=== PATIENT | male | born 1975 | race American Indian/Alaskan Native ===

== ENCOUNTER 2017-11-19 02:00 | Emergency (ER) | payer MEDICAID ==
[2017-11-19 02:38] VITALS: BMI 27.9
--- NOTE | 2017-11-19 02:49 | ED PDOC ---
Arrival/HPI - General Time Seen by Provider: 11/19/17 02:04 Historian: Patient - History of Present Illness Narrative History of Present Illness (Text): 11/19/17 02:47 41 year old male, whose past medical history includes degenerative muscle disease, HIV, Depression, and rhabdomyolysis, presents to the emergency department complaining of worsening neck, right arm, and lower back spasms. Patient reports use of recreational drugs for pain relief. Patient denies any fever, chills, chest pain, shortness of breath, abdominal pain, nausea, vomiting , diarrhea, urinary symptoms, headache, dizziness, or any other complaints. PMD: Dr. Gómez Teague Symptom Onset: Gradual Symptom Course: Worsening Activities at Onset: Light Context: Home Past Medical History - Provider Review Nursing Documentation Reviewed: Yes Family/Social History - Physician Review Nursing Documentation Reviewed: Yes Family/Social History: No Known Family HX Allergies/Home Meds Allergies/Adverse Reactions: Allergies amoxicillin Allergy (Verified 06/26/17 20:28) Home Medications: Home Meds Medication Instructions Recorded Confirmed DiphenhydrAMINE [Benadryl] 25 mg PO Q4H 12/16/14 12/16/14 Quetiapine Fumarate [Seroquel] 200 mg PO DAILY 12/16/14 12/16/14 Review of Systems - Physician Review All systems were reviewed & negative as marked: Yes - Review of Systems Constitutional: absent: Fevers, Other (Chills) Respiratory: absent: SOB Cardiovascular: absent: Chest Pain Gastrointestinal: absent: Abdominal Pain, Diarrhea, Nausea Genitourinary Male: absent: Dysuria, Frequency, Hematuria Musculoskeletal: Back Pain (Spasm), Neck Pain (and right arm spasm) Neurological: absent: Headache, Dizziness Physical Exam Vital Signs Reviewed: Yes Vital Signs Temp Pulse Resp BP Pulse Ox 11/19/17 05:06 97.9 F 66 18 131/97 H 100 Temperature: Afebrile Blood Pressure: Hypertensive Pulse: Regular Respiratory Rate: Normal Appearance: Positive for: Well-Appearing, Non-Toxic, Comfortable Pain Distress: None Mental Status: Positive for: Alert and Oriented X 3 - Systems Exam Head: Present: Atraumatic, Normocephalic Pupils: Present: PERRL Extroacular Muscles: Present: EOMI Conjunctiva: Present: Normal Mouth: Present: Moist Mucous Membranes Neck: Present: Normal Range of Motion Respiratory/Chest: Present: Clear to Auscultation, Good Air Exchange. No: Respiratory Distress, Accessory Muscle Use Cardiovascular: Present: Regular Rate and Rhythm, Normal S1, S2. No: Murmurs Abdomen: No: Tenderness, Distention, Peritoneal Signs Back: Present: Normal Inspection Upper Extremity: Present: Normal Inspection. No: Cyanosis, Edema Lower Extremity: Present: Normal Inspection. No: Edema Neurological: Present: GCS=15, CN II-XII Intact, Speech Normal Skin: Present: Warm, Dry, Normal Color. No: Rashes Psychiatric: Present: Alert, Oriented x 3, Normal Insight, Normal Concentration Medical Decision Making ED Course and Treatment: 11/19/17 02:48 Impression 41 year old male presents complaining of worsening neck, right arm. and lower back spasms. Plan: -- CT Cervical spine w/o Contrast -- Head CT w/o Contrast -- Labs -- Chest X-Ray -- IV Fluids -- UA -- reassess and disposition Progress Notes: EXAM: CT Head Without Intravenous Contrast Dictated and Authenticated by: Damion Blair MD 11/19/2017 4:01 AM IMPRESSION: 1. Dural parafalcine calcifications which could represent calcified meningiomas. 2. No acute CT intracranial abnormalities. EXAM: CT Cervical Spine Without Intravenous Contrast Dictated and Authenticated by: Damion Blair MD 11/19/2017 4:17 AM IMPRESSION: 1. Significant bilateral bony neuroforaminal stenosis at C6-C7 from large uncovertebral joints hypertrophic spurring. 2. No compression deformities of the vertebral bodies. 11/19/17 05:05 Chest X-Ray Impression: As read by NAD. rizwan 11/19/17 05:17 On re-evaluation, patient feels better and is in no acute distress. I have discussed the results and plan with the patient, who expresses understanding. Patient in agreement with plan to be discharged home. Patient is stable for discharge. Patient was instructed to follow up with physician or return if symptoms worsen or new concerning symptoms arise. - Lab Interpretations Lab Results: 11/19/17 03:04 11/19/17 03:04 Lab Results 11/19/17 03:04: Total Creatine Kinase 222 11/19/17 03:04: Alcohol, Quantitative 30 H 11/19/17 03:04: Sodium 140, Potassium 4.0, Chloride 105, Carbon Dioxide 25, Anion Gap 14, BUN 9, Creatinine 0.9, Est GFR ( Amer) > 60, Est GFR (Non- Af Amer) > 60, Random Glucose 105, Calcium 8.7, Total Bilirubin 0.4, AST 96 H, ALT 145 H, Alkaline Phosphatase 89, Troponin I 0.03, Total Protein 8.4 H, Albumin 4.6, Globulin 3.8, Albumin/Globulin Ratio 1.2 11/19/17 03:04: PT 11.2, INR 0.98, APTT 27.9 11/19/17 03:04: WBC 4.6, RBC 4.29, Hgb 14.1, Hct 39.3 L, MCV 91.6, MCH 32.9, MCHC 35.9, RDW 13.3, Plt Count 204, MPV 9.4, Gran % 39.3 L, Lymph % (Auto) 47.2 H, [place] % (Auto) 12.7 H, Eos % (Auto) 0.6 L, Baso % (Auto) 0.2, Gran # 1.82, Lymph # (Auto) 2.2, [place] # (Auto) 0.6, Eos # (Auto) 0.0, Baso # (Auto) 0.01 I have reviewed the lab results: Yes - RAD Interpretation Radiology Orders: 11/19/17 02:56 HEAD W/O CONTRAST [CT] Stat 11/19/17 02:57 CERVICAL SPINE W/O CONTRAST [CT] Stat 11/19/17 02:58 CHEST TWO VIEWS (PA/LAT) [RAD] Stat - Medication Orders Current Medication Orders: Discontinued Medications Sodium Chloride (Sodium Chloride 0.9%) 1,000 mls @ 80 mls/hr IV .[id number] [facility] Last Admin: 11/19/17 03:56 Dose: 80 mls/hr eMAR Start Stop Document 11/19/17 03:56 RD (Rec: 11/19/17 03:56 RD [id number]) Intravenous Solution Start Date 11/19/17 Start Time 03:20 - Scribe Statement The provider has reviewed the documentation as recorded by the Kinjal Blackwell Provider Scribe Attestation: All medical record entries made by the Scribe were at my direction and personally dictated by me. I have reviewed the chart and agree that the record accurately reflects my personal performance of the history, physical exam, medical decision making, and the department course for this patient. I have also personally directed, reviewed, and agree with the discharge instructions and disposition. Disposition/Present on Arrival - Present on Arrival Any Indicators Present on Arrival: No - Disposition Have Diagnosis and Disposition been Completed?: Yes Diagnosis: Cervical radiculopathy Disposition: HOME/ ROUTINE Disposition Time: 05:15 Condition: GOOD Discharge Instructions (ExitCare): Radiculopathy Prescriptions: Naproxen [Naprosyn Tab] 375 mg PO BID #12 tab Referrals: Mahendra Teague MD [Primary Care Provider] - Follow up with primary Annelise Hirsch MD [Medical Doctor] - Follow up with primary Forms: [email or web address] (Sinhala)
[2017-11-19] MEDS ORDERED: Sodium Chloride 0.9% 1,000 ML IV SCH (03:00)
[2017-11-19 03:16] LABS: BASO # 0.01 K/mm3 (0.0-2.0); BASO % 0.2 % (0.0-3.0); EOS % 0.6 % (1.5-5.0); GRAN # 1.82 (1.4-6.5); GRAN % 39.3 % (50.0-68.0); HEMOGLOBIN 14.1 g/dL (14.0-18.0); LYMPH # 2.2 (1.2-3.4); LYMPH % 47.2 % (22.0-35.0); MEAN CELL VOLUME 91.6 fl (80.0-105.0); MEAN CORPUSCULAR HEMOGLOBIN 32.9 pg (25.0-35.0); MEAN CORPUSCULAR HGB CONC 35.9 g/dl (31.0-37.0); MEAN PLATELET VOLUME 9.4 fl (7.0-11.0); MONO # 0.6 (0.1-0.6); MONO % 12.7 % (1.0-6.0); RBC 4.29 10^6/uL (3.5-6.1); RED CELL DISTRIBUTION WIDTH 13.3 % (11.5-14.5); WHITE BLOOD COUNT 4.6 10^3/ul (4.5-11.0)
[2017-11-19 03:25] LABS: INR 0.98; PARTIAL THROMBOPLASTIN TIME 27.9 Seconds (25.1-36.5); PROTHROMBIN TIME 11.2 SECONDS (9.4-12.5)
[2017-11-19 03:30] LABS: ALB/GLOB RATIO 1.2 (1.1-1.8); ALBUMIN 4.6 g/dL (3.0-4.8); ALT/SGPT 145 U/L (7-56); AST/SGOT 96 U/L (17-59); BLOOD UREA NITROGEN 9 mg/dL (7-21); CALCIUM 8.7 mg/dL (8.4-10.5); GFR NON-AFRICAN AMERICAN > 60
[2017-11-19 03:40] LABS: TROPONIN I 0.03 ng/mL
[2017-11-19 05:07] VITALS: BP 131/97; PULSE 66; RESP 18; TEMP 97.9; O2SAT 100
--- NOTE | 2017-11-19 08:03 | CT ---
EXAM: CT Cervical Spine Without Intravenous Contrast CLINICAL HISTORY: 41 years old, male; Pain; Neck pain TECHNIQUE: Axial computed tomography images of the cervical spine without intravenous contrast. All CT scans at this facility use at least one of these dose optimization techniques: automated exposure control; mA and/or kV adjustment per patient size (includes targeted exams where dose is matched to clinical indication); or iterative reconstruction. Coronal and sagittal reformatted images were created and reviewed. COMPARISON: No relevant prior studies available. FINDINGS: Vertebrae: No compression deformities of the vertebral bodies. Small anterior and moderate posterior endplate spondylotic ridging at C6-C7. Moderate left C3-C4 bony neuroforaminal encroachment from endplate spurring Discs/spinal canal/neural foramina: Significant bilateral bony neuroforaminal stenosis at C6-C7 from large uncovertebral joints hypertrophic spurring. Soft tissues: No radiopaque foreign body. Lung apices: Unremarkable as visualized. IMPRESSION: 1. Significant bilateral bony neuroforaminal stenosis at C6-C7 from large uncovertebral joints hypertrophic spurring. 2. No compression deformities of the vertebral bodies.
--- NOTE | 2017-11-19 08:03 | CT ---
EXAM: CT Head Without Intravenous Contrast CLINICAL HISTORY: 41 years old, male; Pain; Headache; Headache not specified; Additional info: SCHUSTER TECHNIQUE: Axial computed tomography images of the head/brain without intravenous contrast. All CT scans at this facility use at least one of these dose optimization techniques: automated exposure control; mA and/or kV adjustment per patient size (includes targeted exams where dose is matched to clinical indication); or iterative reconstruction. Coronal and sagittal reformatted images were created and reviewed. COMPARISON: No relevant prior studies available. FINDINGS: Brain: Dural parafalcine calcifications which could represent calcified meningiomas. Left parafalcine calcification in occipital lobe 0.9 x 0.3 cm. Additional right parafalcine calcifications right frontal lobe 0.8 x 0.3 cm. Ventricles: Appropriate for patient's age. Bones/joints: No acute fracture. Soft tissues: No radiopaque foreign body. Sinuses: No acute sinusitis. Mastoid air cells: No mastoid effusion. IMPRESSION: 1. Dural parafalcine calcifications which could represent calcified meningiomas. 2. No acute CT intracranial abnormalities.
--- NOTE | 2017-11-19 09:33 | RAD ---
HISTORY: COMPARISON: No prior. TECHNIQUE: Chest PA and lateral FINDINGS: LINES AND TUBES: None. LUNG AND PLEURA: The lungs are well inflated and clear. No pleural effusion or pneumothorax. HEART AND MEDIASTINUM: The heart is not enlarged. The hilar and mediastinal contours are within normal limits. SKELETAL STRUCTURES: The bony structures are within normal limits for the patient's age. VISUALIZED UPPER ABDOMEN: Normal. OTHER FINDINGS: None. IMPRESSION: No acute findings.
== END 2017-11-19 05:30 | disposition home or self-care (01) ==
LOC: ED 02:00 → MERGE 02:00 → ED 05:30
DX: M54.12 Radiculopathy, cervical region (principal); M62.82 Rhabdomyolysis
CPT/HCPCS: 70450; 71046; 72125; 80053; 80320; 82550; 84484; 85025; 85610; 85730; 99284; J7030

== ENCOUNTER 2018-01-18 21:04 | Emergency (ER) | payer MEDICAID ==
[2018-01-18 21:30] VITALS: TEMP 98.4
[2018-01-18 21:42] VITALS: BMI 27.3
--- NOTE | 2018-01-18 22:41 | ED PDOC ---
Arrival/HPI - General Chief Complaint: Back Pain Time Seen by Provider: 01/18/18 21:07 Historian: Patient - History of Present Illness Narrative History of Present Illness (Text): 01/18/18 22:39 42-year-old male with past medical history of HIV, presents to the emergency room complaining of intermittent posterior neck pain radiating to the right arm which started again today. Patient states that he has had similar symptoms in the past. Otherwise patient denies any fever, chills, headache, dizziness, chest pain, shortness of breath, palpitations, back pain, weakness, numbness. Patient has no additional complaints. Past Medical History - Cardiac Hx Cardiac Disorders: No - Pulmonary Hx Respiratory Disorders: No - Neurological Hx Neurological Disorder: No - HEENT Hx HEENT Disorder: No - Renal Hx Renal Disorder: No - Endocrine/Metabolic Hx Endocrine Disorders: No - Integumentary Hx Dermatological Disorder: No - Musculoskeletal/Rheumatological Hx Musculoskeletal Disorders: No - Gastrointestinal Hx Gastrointestinal Disorders: No - Genitourinary/Gynecological Hx Genitourinary Disorders: No - Psychiatric Hx Bipolar Disorder: Yes Hx Schizophrenia: Yes Hx Substance Use: No - Anesthesia Hx Anesthesia: No Family/Social History Family/Social History: No Known Family HX Smoking Status: Heavy Smoker > 10 Cigarettes Daily Hx Alcohol Use: Yes Hx Substance Use: No Allergies/Home Meds Allergies/Adverse Reactions: Allergies amoxicillin Allergy (Verified 01/18/18 21:42) RASH Review of Systems - Review of Systems Constitutional: absent: Fatigue, Fevers Respiratory: absent: SOB, Cough Cardiovascular: absent: Chest Pain, Palpitations Gastrointestinal: absent: Abdominal Pain, Diarrhea, Vomiting Genitourinary Male: absent: Dysuria, Frequency, Hematuria Musculoskeletal: Neck Pain. absent: Arthralgias, Back Pain, Joint Swelling Skin: absent: Rash, Pruritis, Skin Lesions Neurological: absent: Headache, Dizziness Physical Exam Vital Signs Temp Pulse Resp BP Pulse Ox 01/18/18 21:22 98.4 F 85 16 150/91 H 96 Temperature: Afebrile Blood Pressure: Hypertensive Pulse: Regular Respiratory Rate: Normal Appearance: Positive for: Well-Appearing, Non-Toxic, Comfortable Pain Distress: None Mental Status: Positive for: Alert and Oriented X 3 - Systems Exam Head: Present: Atraumatic, Normocephalic Pupils: Present: PERRL Extroacular Muscles: Present: EOMI Conjunctiva: Present: Normal Mouth: Present: Moist Mucous Membranes Neck: Present: Normal Range of Motion. No: Meningeal Signs, MIDLINE TENDERNESS, Paraspinal Tenderness, Lymphadenopathy Respiratory/Chest: Present: Clear to Auscultation, Good Air Exchange. No: Respiratory Distress, Accessory Muscle Use Cardiovascular: Present: Regular Rate and Rhythm, Normal S1, S2. No: Murmurs Abdomen: No: Tenderness, Distention, Peritoneal Signs Back: Present: Normal Inspection. No: CVA Tenderness, Midline Tenderness, Paraspinal Tenderness Upper Extremity: Present: Normal Inspection. No: Cyanosis, Edema Lower Extremity: Present: Normal Inspection. No: Edema Neurological: Present: GCS=15, CN II-XII Intact, Speech Normal, Motor Func Grossly Intact, Normal Sensory Function Skin: Present: Warm, Dry, Normal Color. No: Rashes Psychiatric: Present: Alert, Oriented x 3, Normal Insight, Normal Concentration Medical Decision Making ED Course and Treatment: 01/18/18 22:39 Previous medical records reviewed, patient was last seen in this emergency room on 11/19/17 for neck pain. During the ER visit patient had a CT Cervical Spine Without Intravenous Contrast Which showed : 1. Significant bilateral bony neuroforaminal stenosis at C6-C7 from large uncovertebral joints hypertrophic spurring. 2. No compression deformities of the vertebral bodies. Patient medicated with tylenol po and flexeril po. Dx of cervical radiculopathy d/w the patient. Advised to follow up with pmd or the clinic in 1-2 days without fail. Advised to take medication as prescribed. Return to the emergency room at any time for any new or worsening symptoms. Patient states he fully agrees with and understands discharge instructions. States that she agrees with the plan and disposition. Verbalized and repeated discharge instructions and plan. I have given the patient opportunity to ask any additional questions. - Medication Orders Current Medication Orders: Discontinued Medications Acetaminophen (Tylenol 325mg Tab) 975 mg PO STAT STA Stop: 01/18/18 22:10 Last Admin: 01/18/18 22:24 Dose: 975 mg MAR Pain/Vitals Document 01/18/18 22:24 JOL (Rec: 01/18/18 22:25 JOL [id number]) Pain Reassessment Is This A Pain ReAssessment? No Sleep Is patient sleeping during reassessment? No Presence of Pain Presence of Pain Yes Pain Scale Used Protocol: PSCALES Pain Scale Used Numeric Location Upper or Lower Lower Pain Location Body Site Back Intensity 5 Scale Used Numeric Cyclobenzaprine HCl (Flexeril) 5 mg PO STAT STA Stop: 01/18/18 22:10 Last Admin: 01/18/18 22:25 Dose: 5 mg - PA / ASTROPHYSICS TEACHER / Resident Statement MD/DO has reviewed & agrees with the documentation as recorded. Disposition/Present on Arrival - Present on Arrival Any Indicators Present on Arrival: No History of DVT/PE: No History of Uncontrolled Diabetes: No Urinary Catheter: No History of Decub. Ulcer: No History Surgical Site Infection Following: None - Disposition Have Diagnosis and Disposition been Completed?: Yes Diagnosis: Neck pain, Cervical radiculopathy Disposition: HOME/ ROUTINE Disposition Time: 22:45 Patient Plan: Discharge Patient Problems: Current Active Problems Problem Status Onset Neck pain Acute Cervical radiculopathy Acute Condition: STABLE Discharge Instructions (ExitCare): Neck Pain, Radiculopathy (DC) Additional Instructions: Thank you for letting us take care of you today. You were treated for neck pain, cervical radiculopathy. The emergency medical care you received today was directed at your acute symptoms. If you were prescribed any medication, please fill it and take as directed. It may take several days for your symptoms to resolve. Return to the Emergency Department if your symptoms worsen, do not improve, or if you have any other problems. Please contact your doctor in 2 days for re-evaluation and follow up / or call one of the physicians/clinics you have been referred to that are listed on the Patient Visit Information form that is included in your discharge packet. Bring any paperwork you were given at discharge with you along with any medications you are taking to your follow up visit. Our treatment cannot replace ongoing medical care by a primary care provider (PCP) outside of the emergency department. Thank you for allowing the [facility] team to be part of your care today. Prescriptions: Acetaminophen [Tylenol] 650 mg PO Q4H PRN #30 capsule PRN Reason: Pain, Moderate (4-7) Cyclobenzaprine [Flexeril] 5 mg PO TID PRN #15 tab PRN Reason: Muscle Spasm Referrals: Mahendra Teague MD [Primary Care Provider] - [place] [facility] [place] [facility] [place] [facility] [place] - Follow up with primary
[2018-01-18 23:13] VITALS: BP 135/76; PULSE 82; RESP 18; O2SAT 98
== END 2018-01-18 23:00 | disposition home or self-care (01) ==
LOC: ED 21:04
DX: M54.12 Radiculopathy, cervical region (principal); M54.2 Cervicalgia; F17.210 Nicotine dependence, cigarettes, uncomplicated; F20.9 Schizophrenia, unspecified